=== PATIENT | male | born 1985 | race African-American/Black ===

== ENCOUNTER 2017-04-04 01:04 | Emergency (ER) | payer SELFPAY ==
[~2017-04-04] VITALS: Ht 177.8 cm; Wt 84.0 kg
[2017-04-04] MEDS ORDERED: LIDOCAINE HCL 1% 10 ML VIAL INJ ONE (04:15)
[2017-04-04] MEDS ORDERED: SULFAMETHOX/TRIMETH DS 800-160 MG/TABLET PO ONE (04:15)
[2017-04-04] MEDS ORDERED: HYDROCODONE/ACETAMINOPHEN 5-325 MG TABLET PO ONE (04:15)
[2017-04-04] MEDS ORDERED: CEPHALEXIN MONOHYDRATE 500 MG CAPSULE PO ONE (04:15)
[2017-04-04 06:30] VITALS: BP 133/76
== END 2017-04-04 06:30 | disposition home or self-care (01) ==
LOC: EMS 01:05 → EDBD 01:05 → EMS 06:30
DX: L03.012 Cellulitis of left finger (principal)
CPT/HCPCS: 26010; 99284; J3490